=== PATIENT | female | born 1970 | race Caucasian/White ===

== ENCOUNTER → 2023-03-29 10:40 | Outpatient (REF) | payer OTHER, SELFPAY | LOC: HWRAD 10:40 | PROVIDERS: ATTENDING PHYSICIAN Physician Assistant; FAMILY PHYSICIAN Family Medicine | DX: E83.52 Hypercalcemia (principal); E34.9 Endocrine disorder, unspecified | CPT/HCPCS: 76536 ==

== ENCOUNTER → 2023-03-30 07:59 | Outpatient (REF) | payer OTHER, SELFPAY | LOC: RAD 07:59 | PROVIDERS: ATTENDING PHYSICIAN Physician Assistant | DX: E83.52 Hypercalcemia (principal); E34.9 Endocrine disorder, unspecified | CPT/HCPCS: 78071; A9500 ==

== ENCOUNTER → 2023-04-10 11:27 | Outpatient (REF) | payer OTHER, SELFPAY | LOC: RAD 11:27 | PROVIDERS: ATTENDING PHYSICIAN Physician Assistant; FAMILY PHYSICIAN Family Medicine | DX: E83.52 Hypercalcemia (principal); E34.9 Endocrine disorder, unspecified | CPT/HCPCS: 77080; 77081 ==

== ENCOUNTER → 2023-05-30 12:21 | Outpatient (REF) | payer OTHER, SELFPAY ==
[2023-05-30 12:42] VITALS: BP 105/74; BP_SYST 65
== END ==
LOC: RADI 12:21
PROVIDERS: ATTENDING PHYSICIAN Physician Assistant; FAMILY PHYSICIAN Family Medicine
DX: E04.1 Nontoxic single thyroid nodule (principal)
CPT/HCPCS: 88173; 10005

== ENCOUNTER 2023-08-07 06:11 | Day surgery (SDC) | payer OTHER, SELFPAY ==
[2023-07-19 08:35] VITALS: BMI 25.9
[2023-07-19 10:13] LABS: INR 0.95; PT 12.7 Sec (11.4-14.6)
[2023-07-19 10:14] LABS: APTT 34.8 Sec (23.4-35.0)
[2023-07-19 10:22] LABS: Hematocrit 40.3 % (37.0-47.0); Hemoglobin 13.3 g/dL (12.0-16.0); Mean Corpuscular Hgb 30.3 pg (27.0-31.0); Mean Corpuscular Volume 91.8 fL (81.0-99.0); Mean Platelet Volume 10.6 fL (7.4-10.4); Platelet Count 218 10^3/uL (130-400); Red Blood Cell Count 4.39 10^6/uL (4.20-5.40); Red Cell Dist. Width 12.7 % (11.5-14.5); White Blood Cell Count 4.1 10^3/uL (4.8-10.8)
[2023-07-19 12:11] LABS: ALT (SGPT) 23 U/L (0-35); AST (SGOT) 34 U/L (14-36); Albumin 4.4 g/dl (3.5-5.0); Alkaline Phosphatase 90 U/L (38-126); Blood Urea Nitrogen 23 mg/dl (7-17); Calcium 10.9 mg/dl (8.4-10.2); Carbon Dioxide 25 mmol/L (22-30); Chloride 108 mmol/L (98-107); Estimated Creatinine Clearance 76 ml/min; Glucose 87 mg/dl (70-99); Potassium 4.9 mmol/L (3.5-5.1); Sodium 140 mmol/L (135-145); Total Bilirubin 0.8 mg/dl (0.2-1.3); Total Protein 6.9 g/dl (6.3-8.2); eGFR > 60.00
[2023-08-07] VITALS (12 sets, daily range): BP systolic 105–131; BP diastolic 69–85; BMI 25.9
[2023-08-07] MEDS: TYLENOL 1000 MG PO (06:31)
[2023-08-07] MEDS: NEURONTIN 300 MG PO (06:31)
[2023-08-07] MEDS: HEPARIN 5000 UNITS SC (06:31)
[2023-08-07] MEDS: NORMOSOL-R 1000 IV (06:32)
[2023-08-07 08:14] LABS: Turbo PTH 190.2 pg/ml (13.6-85.8)
[2023-08-07] MEDS: ZOFRAN 4 MG IV (09:43)
--- NOTE | 2023-08-07 09:49 | OR.RPT ---
Operative Report
Operative Report
PATIENT NAME: Tameka Gutierrez
DATE OF : 1970
DATE OF OPERATION: August 07, 2023
PREOPERATIVE DIAGNOSIS:
Parathyroid hyperparathyroidism - E210
Thyroid Mass Single - E041
POSTOPERATIVE DIAGNOSIS: Same
SURGEON: Pierre Sigala M.D.
OPERATION:
Right Parathyroidectomy & Limited Neck Dissection � [id number]
Parathyroidectomy - 66788
ANESTHESIA: GET
ESTIMATED BLOOD LOSS: 5 cc
DRAINS: None
SPECIMEN:
right thyroid lobe and isthmus and right level paratracheal tissue
right inferior parathyroid adenoma
FINDINGS: Right inferior parathyroid adenoma and right thyroid nodule
COMPLICATIONS: None
PROCEDURE: The patient was taken to the operating room and placed in the usual supine position. After adequate general endotracheal anesthesia was established, the patient's neck was extended, prepped, and draped in the typical sterile fashion. A 5
cm transcervical incision was made two fingerbreadths above the sternal notch. The skin incision was made with the #15 blade, and this was taken through the skin into the subcutaneous tissue. The underlying platysma muscle was divided, and
subplatysmal flaps were created superiorly to the thyroid cartilage and inferiorly to the sternal notch. Strap muscles were identified and at the midline. Attention was turned to the patient's right side of the neck. The right thyroid lobe
was mobilized medially. During this process, the right recurrent laryngeal nerve was identified and preserved throughout the surgery. The right lower neck nodule was identified and noted to be enlarged, excised, and sent to the pathology department,
which showed a hypercellular parathyroid gland. The normal-appearing right superior parathyroid gland was identified, but appeared to be ischemic. Therefore, this was autotransplanted after mincing it in the right SCM muscle. The intraoperative PTH
levels normalized. The right middle thyroid vein and inferior thyroid artery were dissected and ligated with Ligasure. Next, the right superior pole was taken down by dissecting and transecting the superior pole vessels with a Ligasure. The right
thyroid lobe was further mobilized medially. The right recurrent laryngeal nerve was identified and preserved throughout its entire course. The right thyroid lobe with isthmus was resected off the trachea and sent to the pathology department. At
this time, the right neck dissection was performed. The tissue between the right carotid artery to the trachea into the anterior mediastinum was carefully dissected. The previously identified recurrent laryngeal nerve and parathyroid glands were
preserved. The tissue was removed and sent to the pathology department. After obtaining adequate hemostasis, the strap muscles were reapproximated with #3-0 Vicryl in a running fashion. The platysma muscle was reapproximated with #3-0 Vicryl in an
interrupted fashion, and the skin was approximated with #4-0 Monocryl in a running subcuticular fashion. The Steri-Strips and sterile dressings were placed. The patient tolerated the procedure well. The final instrument, needle, and sponge counts
were correct. The patient was extubated and transferred to the PACU.
--- NOTE | 2023-08-07 09:56 | SUR.PHASEI ---
Patient pale on arrival to PACU, reporting nausea when she woke up. Airway clear, dressing dry. Nausea treated per orders. Roseanne Porras RN BSN.
--- NOTE | 2023-08-07 10:44 | SUR.PHASEI ---
Patient feeling more awake, nausea has improved, color better, For transfer to [facility]. Roseanne Porras RN BSN.
== END 2023-08-07 12:18 | disposition home or self-care (01) ==
LOC: SDS 06:11
PROVIDERS: ATTENDING PHYSICIAN Surgery; FAMILY PHYSICIAN Family Medicine
DX: C73 Malignant neoplasm of thyroid gland (principal); E04.1 Nontoxic single thyroid nodule; E21.0 Primary hyperparathyroidism
CPT/HCPCS: 60252; 60500; 88305; 88307; 88332; 36415; 80053; 83970; 85027; 85610; 85730; 88331; 93005

== ENCOUNTER → 2023-10-11 08:12 | Outpatient (REF) | payer OTHER, SELFPAY | LOC: WDC 08:12 | PROVIDERS: ATTENDING PHYSICIAN Nurse Practitioner Adult Health; FAMILY PHYSICIAN Family Medicine | DX: Z12.31 Encounter for screening mammogram for malignant neoplasm of breast (principal) | CPT/HCPCS: 77063; 77067 ==

== ENCOUNTER → 2024-07-28 14:49 | Outpatient (REF) | payer OTHER, SELFPAY | LOC: HWRAD 14:49 | PROVIDERS: ATTENDING PHYSICIAN Physician Assistant; FAMILY PHYSICIAN Family Medicine | DX: E04.1 Nontoxic single thyroid nodule (principal) | CPT/HCPCS: 76536 ==

== ENCOUNTER → 2024-10-13 18:50 | Outpatient (REF) | payer OTHER, SELFPAY | LOC: WDC 18:50 | PROVIDERS: ATTENDING PHYSICIAN Nurse Practitioner Adult Health; FAMILY PHYSICIAN Family Medicine | DX: Z12.31 Encounter for screening mammogram for malignant neoplasm of breast (principal) | CPT/HCPCS: 77063; 77067 ==